=== PATIENT | female | born 1980 | race Caucasian/White ===

== ENCOUNTER 2017-11-25 11:12 | Outpatient (CLI) | payer OTHER ==
--- NOTE | 2017-11-25 15:56 | Diagnostic Imaging Report ---
NICKIE BARBER [facility] [id number] [address] [facility] [address] [place] [address]. [id number] Report Submission Date: Nov 25, 2017 2:35:35 PM CDT Patient Study Name: JOS DOMÍNGUEZ Date: Nov 25, 2017 12:24:59 PM CDT Modality Type: DX Gender: F Description: SPINE : 82 Institution: [facility] Physician: NICKIE BARBER Examination: Plain film lumbar spine History: ACUTE MIDLINE BACK PAIN WITH NO KNOWN INJURY (Hx) Findings: 3 views of the lumbar spine demonstrate normal height. No anterior compression. No soft tissue abnormalities. Impression: No acute osseous process. If patient is experiencing neurologic symptoms, consider obtaining MRI to further evaluate. Electronically signed on Nov 25, 2017 2:35:35 PM CDT by: Bentley CHAVIS
== END 2017-11-25 11:13 ==
LOC: RAD 11:12
PROVIDERS: ATTEND Family Medicine
DX: M54.5 Low back pain (principal)
CPT/HCPCS: 72100